=== PATIENT | female | born 1995 | race Caucasian/White ===

== ENCOUNTER 2017-12-25 01:35 | Emergency (ER) | payer BC, OTHER ==
[2017-12-25] MEDS ORDERED: Ibuprofen 800 MG TAB ONE (01:57)
== END 2017-12-25 02:05 | disposition home or self-care (01) ==
LOC: NAV ERS 01:35
DX: R09.1 Pleurisy (principal); E03.9 Hypothyroidism, unspecified; E66.9 Obesity, unspecified; Z79.899 Other long term (current) drug therapy
CPT/HCPCS: 93005